=== PATIENT | female | born 1960 | race Caucasian/White ===

== ENCOUNTER 2016-05-28 20:33 | Emergency (ER) | payer OTHER ==
[~2016-05-28] VITALS: Ht 165.1 cm; Wt 91.1 kg
[2016-05-28 20:52] LABS: HEMATOCRIT 40.4 % (36.0-46.0); MCH 30.6 PG (29.0-34.0); MCHC 32.4 G/DL (30.0-36.0); MCV 94.4 FL (83-99); MEAN PLAT.VOLUME 10.2 uM^3 (9.5-12.4); PLATELET COUNT 284 K/uL (156-360); RBC DIS.WIDTH-CV 12.4 % (11.8-14.6); RBC DIS.WIDTH-SD 41.8 % (39-53); RED BLOOD COUNT 4.28 M/uL (3.80-5.20); WHITE BLOOD COUNT 12.4 K/uL (4.1-10.2)
[2016-05-28 21:03] LABS: CHLORIDE 107 mEq/L (99-109); POTASSIUM 3.8 mEq/L (3.7-5.4); SODIUM 144 mEq/L (136-147)
[2016-05-28 21:06] LABS: GLUCOSE 118 mg/dL (70-99)
[2016-05-28 21:07] LABS: ANION GAP 13 MEQ/L (2-14)
[2016-05-28 21:08] LABS: TOTAL BILIRUBIN 0.2 mg/dL (0.0-1.0)
[2016-05-28 21:09] LABS: ALKALINE PHOSPHATASE 83 IU/L (3-129)
[2016-05-28 21:10] LABS: GFR ESTIMATE (CALCULATED) 38 mL/min/; UREA NITROGEN (BUN) 10 mg/dL (9-23)
[2016-05-28 21:22] LABS: QUANTITATIVE HCG < 4.0 MIU/ML
[2016-05-28 21:29] LABS: ADD MIUA? NO; BILIRUBIN NEGATIVE; BLOOD NEGATIVE; COLOR YELLOW ((YELLOW)); GLUCOSE (STRIP) NEGATIVE; KETONES NEGATIVE; LEUKOCYTES NEGATIVE; NITRITE NEGATIVE; PH, URINE 6.5 (5-8); PROTEIN (STRIP) NEGATIVE; SPECIFIC GRAVITY 1.012 (1.000-1.030); UCUL ADDED? NO; UROBILINOGEN 0.2 MG/DL (0.2-1.0)
[2016-05-28 21:43] LABS: SERUM ETHYL ALCOHOL 156 mg/dL
[2016-05-28] MEDS ORDERED: KEFLEX500 MG PO (23:46)
[2016-05-28] MEDS ORDERED: ULTRAM50 MG PO (23:46)
[2016-05-29 02:22] VITALS: BP 103/66
== END 2016-05-29 02:25 | disposition home or self-care (01) ==
LOC: TRA 20:33
DX: S02.2XXA Fracture of nasal bones, initial encounter for closed fracture (principal); F10.129 Alcohol abuse with intoxication, unspecified; E78.5 Hyperlipidemia, unspecified; Z86.718 Personal history of other venous thrombosis and embolism; F17.200 Nicotine dependence, unspecified, uncomplicated
CPT/HCPCS: 70450; 70486; 72125; 80053; 81003; 84702; 85027; 99281; 99284; G0480